=== PATIENT | male | born 1960 | race Caucasian/White ===

== ENCOUNTER 2017-08-14 18:14 | Emergency (ER) | payer OTHER ==
[~2017-08-14] VITALS: Ht 180.3 cm; Wt 107.3 kg
[~2017-08-14 18:14] MED LIST: FLU PO; Habitrol,Nicoderm CQ TD; Levaquin PO; NYQUIL D COLD PO; Proventil,Ventolin H IH; SPIRIVA1 INHALATI IH; Tylenol Extra Streng PO
[2017-08-14 19:42] LABS: HEMATOCRIT 40.2 % (38.0-50.0); HEMOGLOBIN 13.5 G/DL (12.5-16.6); MCH 30.5 PG (29.0-34.0); MCHC 33.6 G/DL (30.0-36.0); MCV 90.7 FL (86-99); PLATELET COUNT 323 K/uL (156-360); RBC DIS.WIDTH-CV 13.5 % (11.8-14.6); RBC DIS.WIDTH-SD 45.1 % (39-53); RED BLOOD COUNT 4.43 M/uL (4.00-5.50); WHITE BLOOD COUNT 6.8 K/uL (4.1-10.2)
[2017-08-14 19:53] LABS: ALBUMIN 4.4 g/dL (3.2-4.8); CHLORIDE 105 mEq/L (99-109); POTASSIUM 3.9 mEq/L (3.7-5.4); SODIUM 144 mEq/L (136-147)
[2017-08-14 19:55] LABS: GLUCOSE 86 mg/dL (70-99)
[2017-08-14 19:56] LABS: TOTAL PROTEIN 7.9 g/dL (6.4-8.3)
[2017-08-14 19:57] LABS: TOTAL BILIRUBIN 0.4 mg/dL (0.0-1.0)
[2017-08-14 19:59] LABS: ALKALINE PHOSPHATASE 71 IU/L (3-129); GFR ESTIMATE (CALCULATED) > 59 mL/min/ (58.99-99999)
[2017-08-14 20:00] LABS: UREA NITROGEN (BUN) 13 mg/dL (9-23)
[2017-08-14 20:01] LABS: AST (GOT) 23 IU/L (2-34)
[2017-08-14 20:02] LABS: ALT (GPT) 35 IU/L (3-49)
[2017-08-14 23:04] VITALS: BP 148/89
== END 2017-08-14 23:05 | disposition home or self-care (01) ==
LOC: EME 18:14
DX: F32.9 Major depressive disorder, single episode, unspecified (principal); H93.19 Tinnitus, unspecified ear; F43.23 Adjustment disorder with mixed anxiety and depressed mood; F17.200 Nicotine dependence, unspecified, uncomplicated
CPT/HCPCS: 80053; 85027; 90839; 99281; 99284

== ENCOUNTER 2017-08-20 11:32 | Emergency (ER) | payer OTHER ==
[~2017-08-20] VITALS: Ht 180.3 cm; Wt 105.9 kg
[2017-08-20 12:13] LABS: HEMATOCRIT 40.4 % (38.0-50.0); HEMOGLOBIN 13.5 G/DL (12.5-16.6); MCH 30.3 PG (29.0-34.0); MCHC 33.4 G/DL (30.0-36.0); MCV 90.8 FL (86-99); PLATELET COUNT 291 K/uL (156-360); RBC DIS.WIDTH-CV 13.7 % (11.8-14.6); RBC DIS.WIDTH-SD 45.9 % (39-53); RED BLOOD COUNT 4.45 M/uL (4.00-5.50); WHITE BLOOD COUNT 11.7 K/uL (4.1-10.2)
[2017-08-20 12:21] LABS: CHLORIDE 101 mEq/L (99-109); POTASSIUM 4.3 mEq/L (3.7-5.4); SODIUM 138 mEq/L (136-147)
[2017-08-20 12:22] LABS: GLUCOSE 105 mg/dL (70-99)
[2017-08-20 12:26] LABS: GFR ESTIMATE (CALCULATED) > 59 mL/min/ (58.99-99999)
[2017-08-20 12:27] LABS: UREA NITROGEN (BUN) 8 mg/dL (9-23)
[2017-08-20 13:41] LABS: TROP-I INTERPRETATION NEGATIVE; TROPONIN-I < 0.01 ng/mL (0.0-0.30)
[2017-08-20] MEDS ORDERED: LEVAQUIN750 MG PO (14:41)
[2017-08-20] MEDS ORDERED: PREDNISONE20 MG PO (14:41)
[2017-08-20] MEDS ORDERED: VENTOLIN HFA18 GM IH (14:41)
[2017-08-20] MEDS ORDERED: ULTRAM50 MG PO (16:00)
[2017-08-20 16:23] VITALS: BP 127/67
== END 2017-08-20 16:25 | disposition home or self-care (01) ==
LOC: EME 11:32
DX: J18.9 Pneumonia, unspecified organism (principal); I10 Essential (primary) hypertension; F17.200 Nicotine dependence, unspecified, uncomplicated
CPT/HCPCS: 71046; 80048; 84484; 85027; 87040; 87070; 87205; 93005; 94640; 99281; 99285